=== PATIENT | male | born 1960 | race Caucasian/White ===

== ENCOUNTER 2024-08-01 13:14 | Emergency (ER) | payer MEDICARE, SELFPAY ==
[2024-08-01 13:15] VITALS: BMI 26.4
[2024-08-01 13:27] VITALS: BP 142/78; PULSE 60; RESP 16; TEMP 36.9; O2SAT 97
--- NOTE | 2024-08-01 13:41 | XR_ITS ---
Examination: Hand, left 3 views Technique: Hand AP, oblique, lateral 3 views Date and time of exam: August 01, 2024 1350 hours INDICATIONS: Injury to the hand 4 days ago, foreign body IMPRESSION: Significant osteoarthritis radiocarpal and intercarpal joints No acute fracture 1 mm opaque body in the soft tissue between the third and fourth metacarpals, palmar on the lateral view No cortical bone destruction IMPRESSION: 1 mm opaque body in the soft tissue between the third and fourth metacarpals, palmar on the lateral view
--- NOTE | 2024-08-01 13:42 | EDRME_ITS ---
Rapid Medical Screening Exam [facility] Arrival date/time: 08/01/24 13:14 64-year-old male with no known medical history presents to the emergency room with a chief complaint of a splinter in his left hand. Patient was seen by his primary care provider and an ultrasound was completed and there is suspicion for a splinter in his left hand. The radiologist recommended an x-ray. I have greeted and performed a focused initial assessment of this patient. A comprehensive ED assessment and evaluation of the patient, analysis of all test results, and completion of the medical decision making process will be conducted by additional ED providers. Chief Complaint: Hand/Wrist Problems Time Seen by Provider: 08/01/24 13:26 Vital signs: Vital Signs Temperature 98.5 F 08/01/24 13:27 Pulse Rate 60 08/01/24 13:27 Respiratory Rate 16 08/01/24 13:27 Blood Pressure 142/78 H 08/01/24 13:27 Pulse Oximetry (%) 97 08/01/24 13:27 Oxygen Delivery Method Room Air 08/01/24 13:27 Vital signs reviewed by provider: Yes
--- NOTE | 2024-08-01 15:39 | PC.CM ---
Addendum entered by Michelle Rothman RN 08/01/24 16:42: I spoke to Urby at [facility] and I let her know I already placed a call out to Dr. Zion Carrion. I pushed over images to [facility]. Addendum entered by Michelle Rothman RN 08/01/24 15:57: Correction: I started transfer with [facility]. I faxed over information. Original Note: [id number] I called and initiated a transfer with [facility]. I started packet and made a CD. [id number] I received a referral from Dr. Bourgeois stating patient needs a hand specialist for left hand FB and infection. I contacted Dr. Ernie Carrion phone # [phone] at [facility] for surgical services. I left a message for Dr. Carrion to call me back.
[2024-08-01 16:07] LABS: Lactate (Lactic Acid) 0.7 mMol/L (0.4-2.0)
[2024-08-01 16:08] LABS: Basophils # (Auto) 0.1 Thou/mm3 (0.0-0.2); Basophils % (Auto) 1 % (0-2.5); Eosinophils # (Auto) 0.2 Thou/mm3 (0.0-0.5); Eosinophils % (Auto) 2 % (0-10); Hematocrit 40.9 % (41.0-53.0); Immature Granulocytes % (Auto) 0 % (0-0); Immature Granulocytes Auto 0.03 Thou/mm3 (0.00-0.00); Lymphocytes # (Auto) 1.3 Thou/mm3 (1.0-4.8); Lymphocytes % (Auto) 13 % (10-50); Mean Corpuscular HGB Conc 34.2 g/dl (31.0-37.0); Mean Corpuscular Hemoglobin 30.2 pg (25.0-35.0); Mean Corpuscular Volume 88 fL (80-100); Monocytes # (Auto) 0.7 Thou/mm3 (0.0-0.8); Monocytes % (Auto) 8 % (0-12); Neutrophils # (Auto) 7.5 Thou/mm3 (1.8-7.7); Neutrophils % (Auto) 76 % (37-80); Nucleated Red Blood Cell % 0 /100 WBC (0); Platelet Count 232 Thou/mm3 (140-440); RDW Standard Deviation 41.1 fL (35.1-43.9); Red Blood Count 4.63 Miln/mm3 (4.50-5.90); White Blood Count 9.8 Thou/mm3 (3.8-10.6)
[2024-08-01 16:19] LABS: Sed Rate (ESR) 38 mm/hr (0-20)
[2024-08-01 16:33] LABS: Alanine Aminotransferase 18 U/L (10-49); Albumin, Serum 5.1 gm/dL (3.4-4.8); Alkaline Phosphatase 70 U/L (46-116); Anion Gap 9 (7-16); Aspartate Amino Transferase 17 U/L (0-34); BUN/Creatinine Ratio 16 Ratio (12-20); Bilirubin,Total 0.6 mg/dL (0.3-1.2); Blood Urea Nitrogen 13 mg/dL (9-23); C-Reactive Protein 4.2 mg/dL (0.0-0.9); Calcium 9.8 mg/dL (8.3-10.6); Calcium (Corrected) 9.8 mg/dL (8.5-10.1); Chloride 101 mMol/L (98-107); Creatinine (Component) 0.8 mg/dL (0.6-1.3); Globulin 2.6 gm/dL (2.3-3.5); Glucose 92 mg/dL (74-106); Osmolality,Calculated 273 (275-295); Procalcitonin 0.06 ng/ml (0.0-0.49); Sodium 137 mMol/L (136-145); Total Protein 7.7 gm/dL (5.7-8.2); eGFR > 60 See Note
--- NOTE | 2024-08-01 16:33 | EDNOTE_ITS ---
Upper Extremity Injury RME/HPI General Chief Complaint: Hand/Wrist Problems Stated Complaint: Left hand, wood splinter in skin Time Seen by Provider: 08/01/24 13:26 Arrival date/time: 08/01/24 13:14 RME / HPI RME / HPI narrative: 08/01/24 13:14 64-year-old male with no known medical history presents to the emergency room with a chief complaint of a splinter in his left hand. Patient was seen by his primary care provider and an ultrasound was completed and there is suspicion for a splinter in his left hand. The radiologist recommended an x-ray. I have greeted and performed a focused initial assessment of this patient. A comprehensive ED assessment and evaluation of the patient, analysis of all test results, and completion of the medical decision making process will be conducted by additional ED providers. This section includes all my notes and documentations, including HPI, PE, and ED course. Jared Bourgeois MD HPI: 64-year-old male here with FB in left hand 4 days ago, while working with wood. He reports worsening pain and swelling and redness and warmth. No fever or chills or bodyaches or malaise. No other complaints. ROS: All negative except as documented in HPI. Physical Exam: General: Alert and oriented. No acute distress when remaining still. Eyes: Conjunctivae and lids clear. ENT: No nasal congestion. Neck: Supple. Lungs: No respiratory distress. Skin: Warm and dry. Neuro: Alert and oriented X 3. Left Hand: Entire hand is remarkable for erythema and edema and calor and tenderness I ordered IV Unasyn and diagnostic tests and initiated transfer for hand surgery. Later in the ED course, I was told the patient left AMA. Jared Bourgeois MD Related Data Home Medications ?Medication ?Instructions ?Recorded ?Confirmed mecobalamin (vitamin B12) 5,000 5,000 mcg PO QDAY 05/16/20 05/16/20 mcg disintegrating tablet Allergies Allergy/AdvReac Type Severity Reaction Status Date / Time No Known Allergies Allergy Verified 05/16/20 11:31 Review of Systems Review of Systems Systems Reviewed: All systems reviewed, normal except as documented Past Medical History Past Medical History CARDIAC: Negative Congestive Heart Failure RESPIRATORY: Negative Chronic Obstructive Pulmonary Disease (COPD) GENITOURINARY: Negative Renal Disease ENDOCRINE: Negative Diabetes Mellitus Type 1 or Diabetes Mellitus Type 2 Social History SMOKING STATUS: Never smoker ED Exam Narrative Physical exam: As noted in HPI Course Quality Measures none Orders Category Date Time Status Saline [Insert IV] NOW Care 08/01/24 15:32 Active 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 Stat Cons 08/01/24 15:18 Active XR hand comp LT min 3V Stat Exams 08/01/24 13:41 Completed Blood Culture (Lab) Stat Lab 08/01/24 15:55 Received CBC Stat Lab 08/01/24 16:00 Completed CMP [Comprehensive Metabolic Panel] Stat Lab 08/01/24 16:00 Completed CRP [C-Reactive Protein] Stat Lab 08/01/24 16:00 Completed ESR [Sed Rate (ESR)] Stat Lab 08/01/24 16:00 Completed Lactate (Lactic Acid) Stat Lab 08/01/24 16:00 Completed Magnesium Stat Lab 08/01/24 16:00 Completed Procalcitonin Stat Lab 08/01/24 16:00 Completed Ampicillin/Sulbac Inj [Unasyn Inj] 3 gm Med 08/01/24 15:31 Discontinued Sodium Chloride 0.9% (P) [Ns 0.9% (P)] 50 ml IV X1 Sodium Chloride 0.9% 1000 ml [Ns] 1,000 ml Med 08/01/24 15:31 Discontinued IV 999 mls/hr Vital Signs Vital signs: Vital Signs Temperature 98.5 F 08/01/24 13:27 Pulse Rate 60 08/01/24 13:27 Respiratory Rate 16 08/01/24 13:27 Blood Pressure 142/78 H 08/01/24 13:27 Pulse Oximetry (%) 97 08/01/24 13:27 Oxygen Delivery Method Room Air 08/01/24 13:27 Pulse ox is 97% on room air which is adequate. Extremity Injury Patient data External records reviewed:: [facility] previous records (I reviewed ED visit on ) Clinical information provided by:: patient Social determinants that could affect healthcare access:: none Patient has the following chronic illnesses:: None reported How is presenting disease/condition affected by chronic disease/condition?: no chronic disease Evaluation data The following diagnostics were reviewed and interpreted by me:: lab results and radiology exam(s) Lab and/or radiology exams considered but not ordered:: None Interpretation Summary: XR hand comp LT 3V shows 1mm opaque body in the soft tissue between the third and fourth metacarpals Medications / Prescriptions Medications or Prescriptions considered but not ordered:: None Medication administrations:: Medication Administration History Discontinued Medications Sodium Chloride (Ns) 1,000 mls @ 999 mls/hr IV .Q1H1M ONE Stop: 08/01/24 16:31 Ampicillin Sodium/Sulbactam (Sodium 3 gm/ Sodium Chloride) 50 mls @ 100 mls/hr IV X1 ONE Stop: 08/01/24 15:32 IV fluid and Unasyn ordered Consultations Consultation(s) initiated? (list below): No Diagnosis Upper Extremity Injury Differential Diagnosis: other (Left hand FB, left hand cellulitis, sepsis) Most likely diagnosis given after review of the tests above:: Left hand FB with infection Admission Indicated Admission indicated?: not indicated Explain why admission is indicated or not indicated:: No hand surgery service here Admission Request Was there a request for admission?: No Disposition Plan Disposition Plan: other (specify) (Patient left AMA) Discharge Plan Plan Patient Disposition: Left Against Medical Advice Prescriptions/Referrals Prescriptions/Med Rec: No Action mecobalamin (vitamin B12) 5,000 mcg tablet,disintegrating 5,000 mcg PO QDAY Referrals: Ronaldo Mullins MD [Primary Care Provider] - In 1 week Problem List Clinical Impression: Superficial foreign body of left hand with infection Patient/Caregiver Discharge Instructions Additional Instructions: Patient left AMA Print Language: Marshallese
--- NOTE | 2024-08-01 16:33 | PC.NURSE ---
Patient walked out of room 7 came to triage and stated he is leaving, patient states they are not doing anything for me so i am leaving, it's a waist of time to be here informed patient Dr. Mcintyre requesting transfer to other facility for injury, patient continuing to refuse to stay, states i am not going to be transferred, i'm leaving , educated patient regarding risks of leaving with possible, or loss of limb and patient verbalizes understanding and continues to assist upon leaving the ER. AMA form signed, charge nurse, claudette and dr. mcintyre made aware.
== END 2024-08-01 16:33 | disposition left against medical advice (07) ==
PROVIDERS: Emergency Provider Emergency Medicine; PCP Internal Medicine
DX: S60.552A Superficial foreign body of left hand, initial encounter (principal); W45.8XXA Other foreign body or object entering through skin, initial encounter
CPT/HCPCS: 36415; 73130; 80053; 83605; 83735; 84145; 85025; 85652; 86140; 87040; 99283

== ENCOUNTER → 2024-08-01 | Outpatient (CLI) | payer MEDICARE, SELFPAY ==
--- NOTE | 2024-08-01 | XR_ITS ---
Examination: Ultrasound soft tissue extremity left hand TECHNIQUE: Grayscale high resolution grayscale sonographic images soft tissue left hand Exam date and time: August 01, 2024 and 53 hours INDICATIONS: Left hand redness swelling and pain post puncture injury 4 days ago FINDINGS: Soft tissue swelling Suspicious for 24 mm foreign body in the soft tissue area concern in the hand with adjacent edema IMPRESSION: Suspicious for foreign body as above Recommend correlation with plain films left hand follow-up
== END | disposition home or self-care (01) ==
LOC: CDIM 11:35
PROVIDERS: PCP Internal Medicine; Referring Provider Internal Medicine; Visit Provider Internal Medicine
DX: S69.92XA Unspecified injury of left wrist, hand and finger(s), initial encounter (principal); W26.9XXA Contact with unspecified sharp object(s), initial encounter
CPT/HCPCS: 76882